=== PATIENT | female | born 1960 | race Caucasian/White ===

== ENCOUNTER 2018-01-23 08:06 | Observation (INO) | payer BC ==
[2018-01-23] MEDS ORDERED: SUCCINYLCHOLINE CHLORIDE 100 MG/5 ML SYG IV ×2 (11:00→12:43)
[2018-01-23] MEDS ORDERED: FENTAnyl 50 MCG/ML VIAL (11:25)
[2018-01-23] MEDS ORDERED: METOCLOPRAMIDE 10 MG INJ IV (11:30)
[2018-01-23] MEDS ORDERED: FENTAnyl 50 MCG/ML VIAL IV ×2 (11:30)
[2018-01-23] MEDS ORDERED: HYDROmorphONE 1 MG/5 ML IV SYRINGE IV ×3 (11:30)
[2018-01-23] MEDS ORDERED: DIPHENHYDRAMINE 50 MG INJ IV (11:30)
[2018-01-23] MEDS ORDERED: ONDANSETRON 4 MG INJ IV ×3 (11:30→15:30)
[2018-01-23] MEDS ORDERED: MEPERIDINE 25 MG INJ IV (11:30)
[2018-01-23] MEDS ORDERED: ALBUTEROL 0.083% (NEB) 2.5 MG/3 ML AMP HHN (11:30)
[2018-01-23] MEDS: ISOSULFAN BLUE 1% 5 ML INJ SC (11:42)
[2018-01-23] MEDS ORDERED: PROPOFOL 20 ML (12:43)
[2018-01-23] MEDS ORDERED: ROCURONIUM 50 MG INJ (12:43)
[2018-01-23] MEDS ORDERED: CEFAZOLIN 1 GM INJ (12:43)
[2018-01-23] MEDS ORDERED: LIDOCAINE 100 MG SYRINGE (12:43)
[2018-01-23] MEDS ORDERED: SUGAMMADEX SODIUM 200 MG/2 ML VIAL IV (12:43)
[2018-01-23] MEDS ORDERED: ACETAMINOPHEN 1000MG/100ML IV 100 ML IVPB (13:00)
[2018-01-23] MEDS ORDERED: morphine 2 MG INJ IV ×2 (13:00→15:30)
[2018-01-23] MEDS: CEFAZOLIN 2 GM/50 ML (PMX) 50 ML IVPB (14:30)
[2018-01-23] MEDS: SOD CHLORIDE 0.9% 1,000 ML IV (14:30)
[2018-01-23] MEDS: D5W-0.45 NACL + KCL 20 MEQ 1,000 ML IV ×3 (15:12→21:38)
[2018-01-23] MEDS ORDERED: HYDROCODONE/APAP (5/325) TAB PO (15:30)
[2018-01-23] MEDS ORDERED: ACETAMINOPHEN 325 MG TAB PO (15:30)
[2018-01-23] MEDS: CEPASTAT LOZENGE MT ×5 (17:33→23:46)
[2018-01-24] MEDS: D5W-0.45 NACL + KCL 20 MEQ 1,000 ML IV ×2 (04:47→07:53)
[2018-01-24 12:28] LABS: ADD MAN DIFF? NO
[2018-01-24 12:50] LABS: WHITE BLOOD COUNT 8.2 10^3/ul (4.8-10.8)
[2018-01-24 12:50] LABS: BASOPHIL # 0.1 10^3/ul (0.0-0.1); BASOPHILS % 0.7 % (0.0-2.0); EOSINOPHILS # 0.1 10^3/ul (0.0-0.5); EOSINOPHILS % 0.7 % (0.0-7.0); HEMATOCRIT 47.7 % (37.0-47.0); HEMOGLOBIN 14.8 g/dl (12.0-16.0); LYMPHOCYTES # 1.6 10^3/ul (0.8-2.9); LYMPHOCYTES % 19.6 % (15.0-51.0); MEAN CORPUSCULAR HEMOGLOBIN 29.4 pg (29.0-33.0); MEAN CORPUSCULAR VOLUME 94.8 fl (82.0-101.0); MONOCYTE # 0.6 10^3/ul (0.3-0.9); MONOCYTES % 7.8 % (0.0-11.0); NEUTROPHIL # 5.8 10^3/ul (1.6-7.5); PLATELET COUNT 265 10^3/UL (140-415); RED BLOOD COUNT 5.03 10^6/ul (4.20-5.40); RED CELL DISTRIBUTION WIDTH 13.3 % (11.5-14.5)
[2018-01-24 13:05] LABS: ANION GAP 11 (5-13); BLOOD UREA NITROGEN 5 mg/dl (7-20); CALCIUM 9.6 mg/dl (8.4-10.2); CARBON DIOXIDE 23 mmol/L (21-31); CHLORIDE 105 mmol/L (97-110); CREATININE 0.47 mg/dl (0.44-1.00); Estimated GFR > 60 mL/min (>60); GLUCOSE 102 mg/dl (70-220); SODIUM 139 mmol/L (135-144)
== END 2018-01-24 15:55 | disposition home or self-care (01) ==
LOC: SDS 08:06 → REC 13:50 → SDS 08:06 → 2NE 13:50 → REC 12:47 → 2NE 13:50 → SDS 01-24 14:00 → REC 01-24 14:00 → 2NE 01-24 14:01
DX: C50.912 Malignant neoplasm of unspecified site of left female breast (principal); Z17.1 Estrogen receptor negative status [ER-]
CPT/HCPCS: 19301; 71045; 80048; 85025; 88307; 88331; 93005